=== PATIENT | male | born 1970 | race Caucasian/White ===

== ENCOUNTER 2024-04-05 20:42 | Emergency (ER) | payer MEDICAID, SELFPAY ==
[2024-04-05 20:43] VITALS: BMI 34.9
[2024-04-05 21:13] VITALS: BP 138/86; BP 158/90; PULSE 92; RESP 18; TEMP 36.8; O2SAT 96
--- NOTE | 2024-04-05 21:28 | PD.EDRME ---
Rapid Medical Screening Exam COUNT INCLUDES THE [facility] Arrival date/time: 04/05/24 20:42 Chief Complaint: Abdominal Pain Time Seen by Provider: 04/05/24 20:50 Vital signs: Vital Signs Temperature 98.2 F 04/05/24 21:13 Pulse Rate 92 04/05/24 21:13 Respiratory Rate 18 04/05/24 21:13 Blood Pressure 158/90 H 04/05/24 21:13 Pulse Oximetry (%) 96 04/05/24 21:13 Oxygen Delivery Method Room Air 04/05/24 21:13 COUNT INCLUDES THE [facility] Narrative: RUQ pain radiating to right back started today. No fever, vomiting/diarrhea or urinary symptoms reported.
--- NOTE | 2024-04-05 21:29 | XR_ITS ---
Examination: Abdomen sonogram, Limited Date and time of exam: April 05, 2024 2137 hrs. Indications: Onset right upper abdominal pain after eating today Technique: Real-time uriostegui scale transabdominal sonographic images of the upper abdomen obtained. Findings: 6 mm gallbladder polyp No gallstones Gallbladder wall 0.3 cm Common bile duct 0.4 cm Pancreas obscured by bowel gas Liver 14.9 cm fatty infiltration no focal liver lesions Normal hepatopedal portal venous flow Patent IVC Impression: 6 mm gallbladder polyp, negative for cholelithiasis, negative for cholecystitis Normal common bile duct
--- NOTE | 2024-04-05 21:29 | EKG_ITS ---
[facility] Test Date: 2024-04-05 Pat Name: NAOMIE LO Department: Room: - Gender: Male [employer]: : 1970 Requested By: Narciso Miller Order Number: [id number] Reading MD: Narciso Miller Measurements Intervals [place] Rate: 83 P: 0 DE: 146 QRS: 56 QRSD: 89 T: 62 QT: 343 QTc: 405 Interpretive Statements SINUS RHYTHM No previous ECG available for comparison /store/S0/[id number]/ecg/[id number].pdf
[2024-04-05] MEDS: KETOROLAC INJ 60 MG/2 ML VIAL 30 MG IM (22:05)
[2024-04-05 22:08] LABS: Basophils % (Auto) 1 % (0-2.5); Eosinophils # (Auto) 0.2 Thou/mm3 (0.0-0.5); Eosinophils % (Auto) 2 % (0-10); Hematocrit 42.1 % (41.0-53.0); Hemoglobin 14.9 g/dL (13.5-16.0); Immature Granulocytes % (Auto) 0 % (0-0); Immature Granulocytes Auto 0.02 Thou/mm3 (0.00-0.00); Lymphocytes # (Auto) 3.4 Thou/mm3 (1.0-4.8); Lymphocytes % (Auto) 41 % (10-50); Mean Corpuscular HGB Conc 35.4 g/dl (31.0-37.0); Mean Corpuscular Volume 85 fL (80-100); Monocytes # (Auto) 0.7 Thou/mm3 (0.0-0.8); Monocytes % (Auto) 8 % (0-12); Neutrophils # (Auto) 3.9 Thou/mm3 (1.8-7.7); Neutrophils % (Auto) 48 % (37-80); Nucleated Red Blood Cell % 0 /100 WBC (0); Platelet Count 257 Thou/mm3 (140-440); Red Blood Count 4.97 Miln/mm3 (4.50-5.90); White Blood Count 8.2 Thou/mm3 (3.8-10.6)
[2024-04-05 22:38] LABS: Alanine Aminotransferase 25 U/L (10-49); Albumin, Serum 4.7 gm/dL (3.5-5.0); Albumin/Globulin Ratio 2.1 (1.2-2.2); Alkaline Phosphatase 101 U/L (46-116); Anion Gap 8 (7-16); Aspartate Amino Transferase 14 U/L (0-34); BUN/Creatinine Ratio 13 Ratio (12-20); Bilirubin,Total 0.4 mg/dL (0.3-1.2); Blood Urea Nitrogen 14 mg/dL (9-23); Calcium 9.4 mg/dL (8.3-10.6); Calcium (Corrected) 9.4 mg/dL (8.5-10.1); Carbon Dioxide 28.5 mMol/L (20.0-31.0); Chloride 103 mMol/L (98-107); Creatinine (Component) 1.1 mg/dL (0.6-1.3); Globulin 2.2 gm/dL (2.3-3.5); Glucose 106 mg/dL (74-106); Lipase 36 U/L (12-53); Osmolality,Calculated 278 (275-295); Potassium 3.7 mMol/L (3.4-5.1); Sodium 139 mMol/L (136-145); Total Protein 6.9 gm/dL (5.7-8.2); Troponin I < 0.020 ng/mL (0.0-0.045); eGFR > 60 See Note
[2024-04-05 22:54] LABS: Collection Type, Urine Clean Catch; Squamous Epithelial Cell,Urine 0 /hpf (0-5)
[2024-04-05 23:23] VITALS: BP 151/96; PULSE 76; RESP 18; TEMP 37; O2SAT 96
[2024-04-05 23:25] LABS: Bilirubin,Urine Negative (Negative); Blood,Urine Negative (Negative); Clarity,Urine Clear (Clear/Hazy); Color,Urine Lt-Yellow (Lt Yel-Yel); Glucose, Urine Negative (Negative); Ketones,Urine Negative (Negative); Leukocyte Esterase,Urine Negative (Negative); Nitrite,Urine Negative (Negative); PH,Urine 6.5 (5.0-7.0); Protein,Urine Negative (Neg - Trace); RBC,Urine 2 /hpf (0-3); Specific Gravity,Urine 1.023 (1.001-1.035); Urobilinogen,Urine Negative mg/dL (0.0-1.0); WBC,Urine < 1 /hpf (0-5)
--- NOTE | 2024-04-05 23:37 | EDNOTE_ITS ---
ED Abdominal Pain RME/HPI General Chief Complaint: Abdominal Pain Stated complaint: abdominal pain right side radiating to flank x 1 d Time seen by provider: 04/05/24 20:50 Arrival date/time: 04/05/24 20:42 RME / HPI RME / HPI narrative: RUQ pain radiating to right back started today. No fever, vomiting/diarrhea or urinary symptoms reported. ---- Dr. Gottlieb?s Main ED Evaluation: 53yo male presents to the ED for a chief complaint of RUQ pain x 1300. Patient states he started having RUQ pain after he ate lunch at 1200. He states he didn't eat again until 1715, reporting his pain increased and worsens when he lays down, so he came in for evaluation. He reports associated nausea. He denies any fever, vomiting, diarrhea or any other associated symptoms. Related Data Previous Rx's ?Medication ?Instructions ?Recorded famotidine 20 mg tablet (Pepcid) 20 mg PO QDAY 30 days #30 tabs 04/06/24 Allergies Allergy/AdvReac Type Severity Reaction Status Date / Time phenytoin [From Dilantin] Allergy Anaphylaxis Verified 12/19/21 14:55 Review of Systems Review of Systems Systems Reviewed: All systems reviewed, normal except as documented Past Medical History Past Medical History CARDIAC: Negative Cardiac Disorders or Congestive Heart Failure RESPIRATORY: Negative Chronic Obstructive Pulmonary Disease (COPD) or Asthma GENITOURINARY: Negative Renal Disease MUSCULOSKELETAL: Positive Carpal Tunnel Syndrome ENDOCRINE: Negative Diabetes Mellitus Type 1 or Diabetes Mellitus Type 2 HEMATOLOGIC: Negative Sickle Cell Disease Social History SMOKING STATUS: Former smoker ED Exam Narrative Physical exam: GENERAL APPEARANCE: alert and oriented x 4, well-developed, well-nourished, no acute distress VITALS: All vitals were reviewed and the pulse ox is 96% on room air, which is normal according to my interpretation. HEENT: Normocephalic, atraumatic; pupils equal, round, reactive to light; EOMI; mucous membranes pink, moist; oropharynx clear NECK: Supple LUNGS: CTABL; no wheezes, no rales, no rhonchi HEART: Regular rate, regular rhythm; normal S1, S2; no murmurs ABDOMEN: non distended; normal BS; soft, moderate RUQ and RLQ tenderness, no guarding, no rebound; no masses, no organomegaly, no hernia BACK: no CVA tenderness EXTREMITIES: atraumatic; no edema NEUROLOGIC: awake; alert and oriented x4; cranial nerves II-XII grossly intact; no focal sensory or motor deficits PSYCHIATRIC: appropriate mood and affect SKIN: warm, dry, normal color; no rashes Course Quality Measures none Orders Category Date Time Status CT Screening NOW Care 04/06/24 00:42 Completed EKG (ED ONLY) *Do not use* NOW Care 04/05/24 21:29 Completed Insert IV NOW Care 04/06/24 01:[address] abdomen pelvis w con Stat Exams 04/06/24 00:42 Taken EKG (ED Only) Stat Exams 04/05/24 21:29 Draft US gall bladder Stat Exams 04/05/24 21:29 Completed CBC Stat Lab 04/05/24 21:54 Completed CMP [Comprehensive Metabolic Panel] Stat Lab 04/05/24 21:54 Completed Lipase Stat Lab 04/05/24 21:54 Completed Troponin I Stat Lab 04/05/24 21:54 Completed UA [Urinalysis] Stat Lab 04/05/24 22:25 Completed Ketorolac Inj [Toradol Inj] Med 04/05/24 21:29 Discontinued 30 mg IM X1 ONE Vital Signs Vital signs: Vital Signs Temperature 98.2 F 04/05/24 21:13 Pulse Rate 92 04/05/24 21:13 Respiratory Rate 18 04/05/24 21:13 Blood Pressure 158/90 H 04/05/24 21:13 Pulse Oximetry (%) 96 04/05/24 21:13 Oxygen Delivery Method Room Air 04/05/24 21:13 Abdominal Pain MDM MDM Narrative MDM Narrative:: Scribe Attestation: 04/05/24 Elvie Yi am scribing for and in the presence of Dr. Gottlieb. Patient data External records reviewed:: [facility] previous records (Per chart review, patient was seen here on 11/07/21 for abdominal pain.) Clinical information provided by:: patient Social determinants that could affect healthcare access:: none Patient has the following chronic illnesses:: none How is presenting disease/condition affected by chronic disease/condition?: no chronic disease Evaluation data The following diagnostics were reviewed and interpreted by me:: lab results, ra diology exam(s) and EKG tracing(s) Lab and/or radiology exams considered but not ordered:: none Interpretation Summary: CBC is normal, CMP is normal, Lipase is normal, UA is unremarkable, according to my interpretation. EKG done at 2217, NSR, rate of 83, normal axis, Q waves in V1 and V2, no ectopy, no acute ischemia, according to my interpretation. ----- [facility] Report Signed Patient: NAOMIE LO. Record#: [id number] Birthdate: 1970 Age/Sex: 53 / M Location: [facility] Attending Dr: Ordering Physician: Narciso Miller PA-C Date of Service: 04/05/24 Procedure(s): US gall bladder Accession Number(s): [id number] cc: Avtar Zayas MD ([facility]); Manjinder Urena MD; Narciso Miller PA-C~ Examination: Abdomen sonogram, Limited Date and time of exam: April 05, 2024 2137 hrs. Indications: Onset right upper abdominal pain after eating today Technique: Real-time uriostegui scale transabdominal sonographic images of the upper abdomen obtained. Findings: 6 mm gallbladder polyp No gallstones Gallbladder wall 0.3 cm Common bile duct 0.4 cm Pancreas obscured by bowel gas Liver 14.9 cm fatty infiltration no focal liver lesions Normal hepatopedal portal venous flow Patent IVC Impression: 6 mm gallbladder polyp, negative for cholelithiasis, negative for cholecystitis Normal common bile duct Dictated By: Manjinder Urena MD Signed By: <Electronically signed by Manjinder Urena MD in OV> 04/05/24 4819 -------- [place] Preliminary Report Draft Patient: NAOMIE LO [employer]. Record#: [id number] Birthdate: 1970 Age/Sex: 53 / M Location: [facility] Attending Dr: Ordering Physician: Date of Service: Procedure(s): Accession Number(s): cc: ~ CT scan of the abdomen and pelvis with intravenous contrast (axial sections with sagittal and coronal reformats) April 06, 2024 0136 hours Clinical History: RLQ pain. Reference is made to the prior report dated November 07, 2021. Findings: The lung bases are clear. Moderate fatty infiltration of the liver is noted. There is subtle pericholecystic fat stranding. There is no evidence of radiodense gallbladder calculus or pericholecystic fluid. The pancreas, spleen, kidneys and adrenals are unremarkable. No evidence of bowel dilatation. The appendix is within normal limits. The urinary bladder is not well distended. There is no free fluid or free air. There is a small fat-containing right inguinal hernia.There is no adenopathy. There are mild degenerative changes in the hip joints and visualized spine. Impression: Subtle pericholecystic fat stranding, cholecystitis cannot be excluded. Recommend follow-up with sonography. No evidence of appendicitis. Other findings as described above. Report Electronically Signed By: Harley Begum 04/06/2024 2:35:16 AM [EST] Medications / Prescriptions Medications or Prescriptions considered but not ordered:: none Medication administrations:: Medication Administration History Discontinued Medications Ketorolac Tromethamine (Ketorolac Inj 60 Mg/2 Ml Vial) 30 mg IM X1 ONE Stop: 04/05/24 21:30 Last Admin: 04/05/24 22:05 Dose: 30 mg Documented By: see above Consultations Consultation(s) initiated? (list below): No Diagnosis Differential diagnosis abdominal pain: acute appendicitis, diverticulitis and other (cholelithiasis, choledocolithiasis, cholecystitis) Most likely diagnosis given after review of the tests above:: see below Admission Indicated Admission indicated?: not indicated Admission Request Was there a request for admission?: No Disposition Plan Disposition Plan: Discharge Discharge Attestation Discharge Attestation: The patient and all family members were given an opportunity to ask questions and understood the discharge instructions. Discharge instructions specifically effects, indications for sooner follow up or return to the emergency department, and the expected course of current diagnosis. Patient condition: Stable Discharge Plan Plan Patient Disposition: HOME (Self Care) Disposition Comment: Stable for discharge Patient condition on transfer: Stable Prescriptions/Referrals Prescriptions/Med Rec: New famotidine [Pepcid] 20 mg tablet 20 mg PO QDAY 30 Days Qty: 30 0RF Referrals: Avtar Zayas MD ([facility]) [Primary Care Provider] - In 1 week Jack Anderson MD [Physician] - In 1 week Problem List Clinical Impression: Abdominal pain Patient/Caregiver Discharge Instructions Discharge Activity: activity as tolerated Education Materials: Abdominal Pain Additional Instructions: Please return to the emergency department if you have no improvement within 48 hours or if you are worsening in any way and we will help you. Otherwise you should follow-up with your primary care doctor within the next several days. Also you should follow-up with Dr. Anderson. Dr. Anderson is our girl friday which is a specialist in the stomach. Call his office and make an appointment and follow-up with him as an outpatient please. You have a prescription for Pepcid waiting for you at the pharmacy. Please take it as directed. Print Language: Yakut Stand Alone Forms: Colleen Award Info., Patient Portal Info Letter
--- NOTE | 2024-04-06 00:42 | XR_ITS ---
Examination: CT abdomen with intravenous contrast CT pelvis with intravenous contrast 2-D coronal reconstructions 2-D sagittal reconstructions Date and time of exam:April 06, 2024 0136 hrs. Comparison November 07, 2021 Indications: Right-sided abdominal pain right-sided flank pain today, history and diagnosis incarcerated inguinal hernia. CTDI: vol (mGy) 12.91 DLP: (mGycm) 882 Technique: Multiple axial sections of the abdomen and pelvis have been obtained. 64 slice high-resolution scanner used. 3 mm axial sections have been obtained, post intravenous injection 60 cc [id number] 2-D sagittal, coronal reconstructions obtained. Low dose protocols were performed. One or more of the following dose reduction techniques were used; automated exposure control, adjustment of the mA and/or KV according to patient size, use of iterative reconstruction technique. Findings: Diffuse fatty infiltration throughout the liver, no focal liver lesions Gallbladder wall does not appear thickened with mild pericholecystic inflammatory change, axial image 114 Spleen is not enlarged No pancreatic or adrenal mass No renal or ureteral calculi, no hydronephrosis Aorta normal size Normal appendix No bowel obstruction or diverticulitis Contracted urinary bladder No prostatomegaly Small fat-containing right inguinal hernia Impression: Normal appendix As opposed to the gallbladder sonogram report April 05, 2024, this study is suspicious for acute acalculous cholecystitis, consider MRCP follow-up
--- NOTE | 2024-04-06 02:36 | PRELIM_ITS ---
CT scan of the abdomen and pelvis with intravenous contrast (axial sections with sagittal and coronal reformats) April 06, 2024 0136 hoursClinical History: RLQ pain.Reference is made to the prior repo rt dated November 07, 2021. Findings:The lung bases are clear.Moderate fatty infiltration of the liver is noted. There is subtle pericholecystic fat stranding. There is no evidence of radiodense gallblad harrison calculus or pericholecystic fluid. The pancreas, spleen, kidneys and adrenals are unremarkable. No evidence of bowel dilatation. The appendix is within normal limits. The urinary bladder is not we ll distended. There is no free fluid or free air. There is a small fat-containing right inguinal her juan.There is no adenopathy. There are mild degenerative changes in the hip joints and visualized spi ne.Impression:Subtle pericholecystic fat stranding, cholecystitis cannot be excluded. Recommend follo w-up with sonography. No evidence of appendicitis. Other findings as described above. Report Electr onically Signed By: Harley Begum 04/06/2024 2:35:16 AM [EST]
[2024-04-06 03:05] VITALS: BP 136/88; PULSE 73; RESP 16; TEMP 36.8; O2SAT 98
== END 2024-04-06 03:06 | disposition home or self-care (01) ==
PROVIDERS: Physician Assistant; Emergency Provider Emergency Medicine; PCP Obstetrics & Gynecology
DX: K82.4 Cholesterolosis of gallbladder (principal); R10.11 Right upper quadrant pain
CPT/HCPCS: 36415; 74177; 76705; 80053; 81001; 83690; 84484; 85025; 93005; 96372; 99285; A4649; J1885; Q9967

== ENCOUNTER 2024-05-05 01:33 | Emergency (ER) | payer MEDICAID, SELFPAY ==
--- NOTE | 2024-05-05 | XR_ITS ---
MRI abdomen, without contrast. MRCP Date and time of exam: May 05, 2024 0849 hours INDICATIONS: Upper abdominal pain this week, epigastric pain, gallbladder polyp Sonogram May 05, 2024 Technique: Multiple axial and coronal images of the abdomen have been obtained with the Siemens 1.5T MRI scanner. Images obtained included T1 weighted transverse images, T2-weighted transverse images, T2-weighted transverse images fat-suppressed, T2 weighted haste fat suppressed transverse images, T1 weighted images, in and out of phase images, T2-weighted coronal images, breath hold, T2 weighted haze coronal images as well as T2 weighted coronal thick slab images, MRCP. Findings: No focal liver lesions or intrahepatic biliary tract dilatation No gallstones Gallbladder wall does not appear thickened Normal common hepatic common bile duct no stones No pancreatic mass no pancreatic edema no dilated pancreatic duct Spleen is not enlarged No hydronephrosis Aorta normal size No ascites IMPRESSION: Negative for cholelithiasis, negative for cholecystitis Normal common hepatic common bile duct Negative for pancreatitis
[2024-05-05 01:34] VITALS: BMI 34.9
[2024-05-05 02:47] VITALS: BP 135/87; PULSE 82; RESP 17; TEMP 36.8; O2SAT 95
--- NOTE | 2024-05-05 03:07 | XR_ITS ---
Examination: Abdomen sonogram, Limited Date and time of exam: May 05, 2024 0418 hrs. Indications: Onset upper abdominal pain beginning yesterday afternoon Technique: Real-time uriostegui scale transabdominal sonographic images of the upper abdomen obtained. Findings: 6 mm gallbladder polyp No gallstones Gallbladder wall 0.20 cm Common bile duct 0.42 cm Pancreas obscured by bowel gas Liver 14.5 cm no liver lesions Normal hepatopedal portal venous flow Patent IVC Impression: 6 mm gallbladder polyp Negative for cholelithiasis, negative for cholecystitis
--- NOTE | 2024-05-05 03:07 | PD.EDRME ---
Rapid Medical Screening Exam RME Arrival date/time: 05/05/24 01:33 53M with no significant PMH presents to ED with 1 day of RUQ/epigastric pain (RUQ>epigastric) and some N/V. Patient was seen last month for this. Patient is in the process of doing outpatient follow-up with pending insurance approval for specialist referral. Chief Complaint: Abdominal Pain Vital signs: Vital Signs Temperature 98.2 F 05/05/24 02:47 Pulse Rate 82 05/05/24 02:47 Respiratory Rate 17 05/05/24 02:47 Blood Pressure 135/87 H 05/05/24 02:47 Pulse Oximetry (%) 95 05/05/24 02:47 Oxygen Delivery Method Room Air 05/05/24 02:47
[2024-05-05 03:45] LABS: Basophils # (Auto) 0.1 Thou/mm3 (0.0-0.2); Basophils % (Auto) 1 % (0-2.5); Eosinophils # (Auto) 0.2 Thou/mm3 (0.0-0.5); Eosinophils % (Auto) 3 % (0-10); Hematocrit 43.9 % (41.0-53.0); Hemoglobin 15.5 g/dL (13.5-16.0); Immature Granulocytes % (Auto) 1 % (0-0); Immature Granulocytes Auto 0.04 Thou/mm3 (0.00-0.00); Lymphocytes # (Auto) 4.2 Thou/mm3 (1.0-4.8); Lymphocytes % (Auto) 49 % (10-50); Mean Corpuscular HGB Conc 35.3 g/dl (31.0-37.0); Mean Corpuscular Hemoglobin 30.2 pg (25.0-35.0); Mean Corpuscular Volume 85 fL (80-100); Monocytes # (Auto) 0.7 Thou/mm3 (0.0-0.8); Monocytes % (Auto) 8 % (0-12); Neutrophils # (Auto) 3.3 Thou/mm3 (1.8-7.7); Neutrophils % (Auto) 39 % (37-80); Nucleated Red Blood Cell % 0 /100 WBC (0); Platelet Count 246 Thou/mm3 (140-440); RDW Standard Deviation 39.5 fL (35.1-43.9); Red Blood Count 5.14 Miln/mm3 (4.50-5.90); White Blood Count 8.5 Thou/mm3 (3.8-10.6)
[2024-05-05 04:13] LABS: Amphetamine/Methamp Scrn,U Negative (Negative); Barbiturate Screen,Urine Negative (Negative); Benzodiazepines Screen,Urine Negative (Negative); Benzoylecgonine Screen, Ur Negative (Negative); Fentanyl Screen,Urine Negative (Negative); Opiate Screen,Urine Negative (Negative); THC Screen,Urine Negative (Negative)
[2024-05-05 04:17] LABS: Alanine Aminotransferase 31 U/L (10-49); Albumin, Serum 4.7 gm/dL (3.5-5.0); Alkaline Phosphatase 103 U/L (46-116); Anion Gap 8 (7-16); Aspartate Amino Transferase 20 U/L (0-34); BUN/Creatinine Ratio 13 Ratio (12-20); Bilirubin,Total 0.6 mg/dL (0.3-1.2); Blood Urea Nitrogen 15 mg/dL (9-23); Calcium 9.3 mg/dL (8.3-10.6); Calcium (Corrected) 9.3 mg/dL (8.5-10.1); Carbon Dioxide 28.9 mMol/L (20.0-31.0); Chloride 103 mMol/L (98-107); Creatinine (Component) 1.2 mg/dL (0.6-1.3); Estimated Creatinine Clearance 84.3 mL/min (>60); Globulin 2.4 gm/dL (2.3-3.5); Glucose 94 mg/dL (74-106); Lipase 56 U/L (12-53); Osmolality,Calculated 280 (275-295); Potassium 3.8 mMol/L (3.4-5.1); Sodium 140 mMol/L (136-145); Total Protein 7.1 gm/dL (5.7-8.2); eGFR > 60 See Note
[2024-05-05 07:39] VITALS: BP 136/89; PULSE 75; RESP 17; TEMP 36.8; O2SAT 96
--- NOTE | 2024-05-05 07:56 | PD.EDABDPN ---
ED Abdominal Pain RME/HPI General Chief Complaint: Abdominal Pain Stated complaint: RIGHT UPPER ABDOMINAL PAIN Time seen by provider: 05/05/24 07:49 Arrival date/time: 05/05/24 01:33 RME / HPI RME / HPI narrative: DR. WOODS MAIN ED EVALUATION: 53 year old male with no past medical history presents to the Emergency Department with complaint of right upper quadrant and epigastric pain onset 1 day. Associated symptoms include nausea and vomiting. Patient had similar pain in the past and is in the process of doing outpatient follow-up with pending insurance approval for specialist referral. Related Data Previous Rx's ?Medication ?Instructions ?Recorded famotidine 20 mg tablet (Pepcid) 20 mg PO QDAY 30 days #30 tabs 04/06/24 Allergies Allergy/AdvReac Type Severity Reaction Status Date / Time phenytoin (From Dilantin) Allergy Anaphylaxis Verified 12/19/21 14:55 Review of Systems Review of Systems Systems Reviewed: All systems reviewed, normal except as documented Narrative Review of Systems: GEN: No fever, no chills, no weight loss EYES: No discharge, no visual changes, no pain HEENT: No ear pain, no congestion, no sore throat PULM: No shortness of breath, no cough, no congestion CV: No chest pain, no dyspnea on exertion, no palpitations GI: + nausea, + vomiting, no diarrhea, + right upper quadrant, + epigastric pain, no constipation : No frequency, no urgency and no dysuria MUSC/SKEL: No joint pain, no back pain SKIN: No rash PSYCH: No hallucinations, no depression HEME/LYMPH: No easy bleeding or bruising tendencies NEURO: No weakness, no headache Past Medical History Past Medical History CARDIAC: Negative Cardiac Disorders or Congestive Heart Failure RESPIRATORY: Negative Chronic Obstructive Pulmonary Disease (COPD) or Asthma GENITOURINARY: Negative Renal Disease MUSCULOSKELETAL: Positive Carpal Tunnel Syndrome ENDOCRINE: Negative Diabetes Mellitus Type 1 or Diabetes Mellitus Type 2 HEMATOLOGIC: Negative Sickle Cell Disease Social History SMOKING STATUS: Never smoker SUBSTANCE USE: does not use ALCOHOL: Never ED Exam Narrative Physical exam: GENERAL APPEARANCE: alert and oriented x 4, well-developed, well-nourished, no acute distress VITALS: All vitals were reviewed and the pulse ox is 94% on room air, which is normal according to my interpretation. HEENT: Normocephalic, atraumatic; pupils equal, round, reactive to light; EOMI; mucous membranes pink, moist; oropharynx clear NECK: Supple LUNGS: CTABL; no wheezes, no rales, no rhonchi HEART: Regular rate, regular rhythm; normal S1, S2; no murmurs ABDOMEN: non distended; normal BS; soft, no tenderness, no guarding, no rebound; no masses, no organomegaly, no hernia BACK: no CVA tenderness EXTREMITIES: atraumatic; no edema NEUROLOGIC: awake; alert and oriented x4; cranial nerves II-XII grossly intact; no focal sensory or motor deficits PSYCHIATRIC: appropriate mood and affect SKIN: warm, dry, normal color; no rashes Course Quality Measures none Orders Category Date Time Status MRI Screening NOW Care 05/05/24 08:19 Completed MR MRCP Stat Exams 05/05/24 Completed NM HIDA w pharm Stat Exams 05/05/24 07:52 Ordered US gall bladder Stat Exams 05/05/24 03:07 Completed CBC Stat Lab 05/05/24 03:36 Completed CMP [Comprehensive Metabolic Panel] Stat Lab 05/05/24 03:36 Completed Drug Screen,Urine Stat Lab 05/05/24 03:45 Completed Lipase Stat Lab 05/05/24 03:36 Completed Troponin I Stat Lab 05/05/24 09:50 Completed Vital Signs Vital signs: Vital Signs Temperature 98.2 F 05/05/24 02:47 Pulse Rate 82 05/05/24 02:47 Respiratory Rate 17 05/05/24 02:47 Blood Pressure 135/87 H 05/05/24 02:47 Pulse Oximetry (%) 95 05/05/24 02:47 Oxygen Delivery Method Room Air 05/05/24 02:47 Abdominal Pain MDM MDM Narrative MDM Narrative:: Yessenia Del Toro am scribing for and in the presence of Dr. Woods. Patient data External records reviewed:: [facility] previous records (Reviewed Urology note by Dr. Calderon, dated 12/19/21.) Clinical information provided by:: patient Social determinants that could affect healthcare access:: none Patient has the following chronic illnesses:: Denies any PMHx, surgeries, daily medications, or known allergies. How is presenting disease/condition affected by chronic disease/condition?: no chronic disease Evaluation data The following diagnostics were reviewed and interpreted by me:: lab results and radiology exam(s) Lab and/or radiology exams considered but not ordered:: none Interpretation Summary: Procedure(s): US gall bladder Accession Number(s): [id number] cc: Manjinder Urena MD; Umang Neri PA-C ([employer]); Freedom Myers PA-C~ Examination: Abdomen sonogram, Limited Date and time of exam: May 05, 2024 0418 hrs. Indications: Onset upper abdominal pain beginning yesterday afternoon Technique: Real-time uriostegui scale transabdominal sonographic images of the upper abdomen obtained. Findings: 6 mm gallbladder polyp No gallstones Gallbladder wall 0.20 cm Common bile duct 0.42 cm Pancreas obscured by bowel gas Liver 14.5 cm no liver lesions Normal hepatopedal portal venous flow Patent IVC Impression: 6 mm gallbladder polyp Negative for cholelithiasis, negative for cholecystitis Dictated By: Manjinder Urena MD Procedure(s): MR MRCP Accession Number(s): [id number] cc: Manjinder Urena MD; Umang Neri PA-C ([employer]); Alexandra Woods MD~ MRI abdomen, without contrast. MRCP Date and time of exam: May 05, 2024 0849 hours INDICATIONS: Upper abdominal pain this week, epigastric pain, gallbladder polyp Sonogram May 05, 2024 Technique: Multiple axial and coronal images of the abdomen have been obtained with the Siemens 1.5T MRI scanner. Images obtained included T1 weighted transverse images, T2-weighted transverse images, T2-weighted transverse images fat-suppressed, T2 weighted haste fat suppressed transverse images, T1 weighted images, in and out of phase images, T2-weighted coronal images, breath hold, T2 weighted haze coronal images as well as T2 weighted coronal thick slab images, MRCP. Findings: No focal liver lesions or intrahepatic biliary tract dilatation No gallstones Gallbladder wall does not appear thickened Normal common hepatic common bile duct no stones No pancreatic mass no pancreatic edema no dilated pancreatic duct Spleen is not enlarged No hydronephrosis Aorta normal size No ascites IMPRESSION: Negative for cholelithiasis, negative for cholecystitis Normal common hepatic common bile duct Negative for pancreatitis Dictated By: Manjinder Urena MD Medications / Prescriptions Medications or Prescriptions considered but not ordered:: none Medication administrations:: see above if any Consultations Consultation(s) initiated? (list below): No Diagnosis Differential diagnosis abdominal pain: abdominal pain, gastroenteritis and other (gastritis) Most likely diagnosis given after review of the tests above:: Abdominal pain, RUQ Admission Indicated Admission indicated?: not indicated Admission Request Was there a request for admission?: No Disposition Plan Disposition Plan: Discharge Discharge Attestation Discharge Attestation: The patient and all family members were given an opportunity to ask questions and understood the discharge instructions. Discharge instructions specifically effects, indications for sooner follow up or return to the emergency department, and the expected course of current diagnosis. Patient condition: Stable Discharge Plan Plan Patient Disposition: HOME (Self Care) Prescriptions/Referrals Prescriptions/Med Rec: No Action famotidine [Pepcid] 20 mg tablet 20 mg PO QDAY 30 Days Qty: 30 0RF Referrals: Umang Neri PA-C ([employer]) [Primary Care Provider] - In 1 week Problem List Clinical Impression: Abdominal pain, RUQ Patient/Caregiver Discharge Instructions Education Materials: Abdominal Pain Additional Instructions: Follow up with your doctor as needed. May consider HIDA scan as part of further workup. Print Language: Bulgarian Stand Alone Forms: [employer] Award Info., Work/School Release, Patient Portal Info Letter
[2024-05-05 09:43] VITALS: BP 108/84; PULSE 65; RESP 17; TEMP 36.9; O2SAT 94
[2024-05-05 10:25] LABS: Troponin I < 0.020 ng/mL (0.0-0.045)
== END 2024-05-05 12:40 | disposition home or self-care (01) ==
PROVIDERS: Physician Assistant; Emergency Provider Emergency Medicine; PCP Physician Assistant Medical
DX: K82.4 Cholesterolosis of gallbladder (principal)
CPT/HCPCS: 36415; 76705; 80053; 80307; 81001; 83690; 84484; 85025; 99284; S8037; 74181